=== PATIENT | female | born 1985 | race Caucasian/White ===

== ENCOUNTER 2025-04-11 05:59 | Outpatient (REF) | payer MEDICAID, SELFPAY ==
--- OUTSIDE RECORDS SUMMARY | 2025-04-08 14:00 | XMS_ITS | Encounter Summary ---
Author Organization [email or web address] [facility] Address [address] [place] [address] [address], [place] [address] Care Team Providers Care Clinical Trials Systems Administrator Name Role Phone Radha Licona MD Primary Care Provide r Reason for Referral * Consultation (Routine) - Closed Specialty Diagnoses / Procedures Referred By Kim t Referred To Contact Otolaryngology Diagnoses Chronic left ear pain Radha Licona MD [address] [place] [address] Phone: tel: fax: [facility] [address] Phone: tel: fax: Referral ID Status Reason Start Date Expiration Date V isits Requested Visits Authorized [id number] Closed Specialty Services Required 04/08/2025 04/08/2026 6 6 * Consultation (Routine) - Authorized Specialty Diagnoses / Procedures Referred By Contac t Referred To Contact Behavioral Health Diagnoses Anxiety Procedures Referral to Behavioral Health Radha Licona MD [address] [place] [address] Phone: tel: fax: Referral ID Status Reason Start Date Expiration Date Visits Requested Visits Authorized [id number] Authorized Specialty Services Required 04/08/2025 04/08/2026 1 1 * Consultation (Routine) - Closed Specialty Diagnoses / Procedures Referred By Contac t Referred To Contact Physical Therapy Diagnoses Chronic pain of right knee Right sciatic nerve pain Radha Licona MD [address] [place], [place] Phone: tel: fax: [facility] [address] [place], [place] Phone: tel: fax: Referral ID Status Reason Start Date Expiration Date V isits Requested Visits Authorized [id number] Closed Specialty Services Required 04/08/2025 04/08/2026 20 20 * Consultation (Routine) - Authorized Specialty Diagnoses / Procedures Referred By Kim t Referred To Contact Obstetrics and Gynecology Diagnoses Dysmenorrhea Radha Licona MD [address] [place], [place] Phone: tel: fax: [facility] [address] 5th Floor [address] (Main Hospital Entrance) [place], [place] Phone: tel: fax: Referral ID Status Reason Start Date Expiration Date Visits Requested Visits Authorized [id number] Authorized Specialty Services Required 04/08/2025 04/08/2026 9 9 * Imaging (Routine) - Authorized Specialty Diagnoses / Procedures Referred By Contac t Referred To Contact Radiology Diagnoses Dysmenorrhea Procedures US Pelvis Transvaginal Radha Licona MD [address] [place], [place] Phone: tel: fax: [facility] [address] [place] [address] Phone: tel: fax: Referral ID Status Reason Start Date Expiration Date V isits Requested Visits Authorized [id number] Authorized 04/08/2025 04/08/2026 1 1 * Imaging (Routine) - Authorized Specialty Diagnoses / Procedures Referred By Kim t Referred To Contact Radiology Diagnoses Dysmenorrhea Procedures Us Pelvis complete Radha Licona MD [address] [place] [address] Phone: tel: fax: [address] Phone: tel: fax: Referral ID Status Reason Start Date Expiration Date V isits Requested Visits Authorized [id number] Authorized 04/08/2025 04/08/2026 1 1 Encounter Details Date Type Department Care Team (Late st Contact Info) Description 04/08/2025 2:00 PM EST Office Visit [facility] [address] [place] [address] Radha Licona MD [address] [place], [place] [phone] Dysmenorrhea (Primary Dx); Chronic pain of right knee; Right sciatic nerve pain; Anxiety; Chronic left ear pain Social History Tobacco Use Types Packs/Day Years Used Date Smoking Tobacco: Never Passive Smoke Exposure: Never Smokeless Tobacco: Never Comments Unknown Sex and Gender Information Value Date Recorded Sex Assigned at Female 04/02/2022 5:40 PM EDT Legal Sex Female 5:40 PM EDT Gender Identity Female 04/02/2022 5:40 PM EDT Sexual Orientation Straight 04/02/2022 5: 40 PM EDT documented as of this encounter Last Filed Vital Signs Vital Sign Reading Time Taken Comments Blood Pressure 112/80 04/08/2025 2:06 PM EST Pulse 101 04/08/2025 2:06 PM EST Temperature 35.9 C (96.6 F) 04/08/2025 2:06 PM EST Respiratory Rate 17 04/08/2025 2:06 PM EST Oxygen Saturation 99% 04/08/2025 2:06 PM EST Inhaled Oxygen Concentration - - Weight 58.8 kg (129 lb 9.6 oz) 04/08/2025 2:06 P M EST Height 154.9 cm (5' 1 ) 04/08/2025 2:06 PM EST Body Mass Index 24.49 04/08/2025 2:06 PM EST documented in this encounter Progress Notes * Radha Pate MD - 04/08/2025 2:00 PM EST SUBJECTIVE: Sugar Mendez is a 39 y.o. year old female who presents for New patient . Occupation:works in a [employer] shop Lives with:with her 2 kids - EtOH occasionally 2 times per month tries not to drink too much does days - smoking cigarettes denies - recreational drug use denies Diet:regular Exercise:sedentary LMP: 04/07/2025 regular, dysmenorrhea Surgeries/Hospitalizations:tubal ligation, c-sections x3 PMHx:sciatic pain right side, right knee pain, anxiety, chronic left ear pain with dizziness FMHx:mother asthma, father prostatic cancer, cousin thyroid cancer and lung cancer Immunizations: Declines immunizations Sugar Mendez, 39 years Sciatic pain and right knee pain - Intermittent burning sensation starting in the lower back, radiating down the right leg to the big toe, sometimes affecting walking and sleep - Symptoms present since January 2025, occurring on some days and absent on others - Right knee pain, sometimes severe enough to prevent kneeling - History of accident 20 years ago, with current symptoms attributed to sequelae affecting back, sciatic nerve, and hands Menstrual pain - Menstrual cycles regular every 26-28 days, onset of last period April 07, 2025 - Menstruation described as very painful - Pain has worsened since tubal ligation performed 9 years ago - Uses ibuprofen and occasionally acetaminophen for pain, reports limited relief Left ear pain - Left ear pain for approximately 3 years, occurs only in cold weather or with air conditioning - Associated with dizziness Anxiety - Experiences fatigue during the day, attributed to anxiety - Denies depression - History of one year of therapy via telehealth at previous residence - Used melatonin for sleep, discontinued due to adverse effects - Uses teas for anxiety management Joint pain - Occasional severe joint pain, especially in the mornings, described as similar to symptoms of Zika and Chikungunya Social History Social History Narrative Not on file Problem List[1] Family History[2] Review of Systems Constitutional: Negative. HENT: Negative. Respiratory: Negative. Cardiovascular: Negative. Genitourinary: Positive for menstrual problem. Musculoskeletal: Positive for arthralgias and myalgias. Psychiatric/Behavioral: The patient is nervous/anxious. OBJECTIVE: Vitals: 04/08/25 1406 BP: 112/80 BP Location: Left arm Patient Position: Sitting BP Cuff Size: Adult Pulse: 101 Resp: 17 Temp: 96.6 ??F (35.9 ??C) TempSrc: Temporal SpO2: 99% Weight: 129 lb 9.6 oz (58.8 kg) Height: 5' 1 (1.549 m) Physical Exam Constitutional: Appearance: Normal appearance. Cardiovascular: Rate and Rhythm: Normal rate and regular rhythm. Pulmonary: Effort: Pulmonary effort is normal. Breath sounds: Normal breath sounds. Abdominal: General: Abdomen is flat. Palpations: Abdomen is soft. Musculoskeletal: Right lower leg: No edema. Left lower leg: No edema. Neurological: Mental Status: She is alert. Follow Up: Follow up for next available PAP smear . Medications Ordered Prior to Encounter[3] Problem List Items Addressed This Visit Dysmenorrhea - Primary Relevant Orders Us Pelvis complete US Pelvis Transvaginal Referral to Obstetrics / Gynecology Chronic pain of right knee Relevant Orders XR Knee 4+ Views Right Referral to Physical Therapy Right sciatic nerve pain Relevant Orders XR Lumbar Spine 2-3 Views Referral to Physical Therapy Anxiety Relevant Orders CBC auto differential Comprehensive Metabolic Panel Hemoglobin A1c HIV-1/2 Antigen and Antibodies, Fourth Generation, with Reflexes Hepatitis C Antibody with Reflex to HCV, RNA, Quantitative, Real-Time PCR Lipid Panel, Standard Vitamin D, 25-Hydroxy, Total, Immunoassay TSH with Reflex to Free T4 Referral to Behavioral Health Chronic left ear pain Relevant Orders Referral to ENT Dysmenorrhea: - Dysmenorrhea with increased severity since tubal ligation 9 years ago. - Ordered pelvic and transvaginal ultrasound. Ordered comprehensive blood work including thyroid panel. Referred to gynecology for further evaluation. Continue use of Motrin as needed for pain. Chronic pain of right knee: - Chronic right knee pain, worsened by movement. - Ordered right knee radiograph. Provided physical therapy referral. Right sciatic nerve pain: - Chronic right-sided sciatica, intermittent symptoms. - Ordered lumbar spine radiograph. Provided physical therapy referral. Anxiety: - Anxiety, currently not on medication or therapy. - Provided referral to therapist for evaluation and management. Chronic left ear pain: - Chronic left ear pain, exacerbated by cold exposure and air conditioning. This note was drafted using Ambient (AI) technology. The patient/patient's guardian has been informed and has consented to the use of this technology: Yes [1] Patient Active Problem List Diagnosis Periodontal disease Dental calculus Gingival bleeding Dysmenorrhea Chronic pain of right knee Right sciatic nerve pain Anxiety Chronic left ear pain [2] No family history on file. [3] Current Outpatient Medications on File Prior to Visit Medication Sig Dispense Refill chlorhexidine (Peridex) 0.12 % solution Use 15 ml mouthwash, swish and spit/ three times a day (Patient not taking: Reported on 08/26/2022) 473 mL 0 No current facility-administered medications on file prior to visit. documented in this encounter Plan of Treatment Upcoming Encounters Date Type Department Care Team (Late st Contact Info) Description 04/16/2025 2:45 PM EST Telemedicine [facility] [address] [place], [place] [phone] Radha Licona MD [address] [place] [address] Scheduled Orders Name Type Priority Associated Diagnoses Orde r Schedule CBC auto differential Lab Routine Anxiety Expected: 04/08/2025 (Approximate), Expires: 04/08/2026 Comprehensive Metabolic Panel Lab Routine Anxiety Expected: 04/08/2025 (Approximate), Expires: 04/08/2026 Hemoglobin A1c Lab Routine Anxiety Expected: 04/08/2025 (Approximate), Expires: 04/08/2026 HIV-1/2 Antigen and Antibodies, Fourth Generation, with Reflexes Lab Routine Anxiety Expected: 04/08/2025 (Approximate), Expires: 04/08/2026 Hepatitis C Antibody with Reflex to HCV, RNA, Quantitative, Real-Time PCR Lab Routine Anxiety Expected: 04/08/2025, Expires: 04/08/2026 Lipid Panel, Standard Lab Routine Anxiety Expected: 04/08/2025 (Approximate), Expires: 04/08/2026 Vitamin D, 25-Hydroxy, Total, Immunoassay Lab Routine Anxiety Expected: 04/08/2025 (Approximate), Expires: 04/08/2026 TSH with Reflex to Free T4 Lab Routine Anxiety Expected: 04/08/2025 (Approximate), Expires: 04/08/2026 Us Pelvis complete Imaging Routine Dysmenorrhea Expected: 04/08/2025, Expires: 04/08/2026 US Pelvis Transvaginal Imaging Routine Dysmenorrhea Expected: 04/08/2025, Expires: 04/08/2026 XR Lumbar Spine 2-3 Views Imaging Routine Right sciatic nerve pain Expected: 04/08/2025, Expires: 04/08/2026 XR Knee 4+ Views Right Imaging Routine Chronic pain of right knee Expected: 04/08/2025, Expires: 04/08/2026 Scheduled Referrals Name Type Priority Associated Diagnoses Order Schedule Referral to Obstetrics / Gynecology Outpatient Referral Routine Dysmenorrhea Expected: 04/08/2025 (Approximate), Expires: 04/08/2026 Referral to Physical Therapy Outpatient Referral Routine Chronic pain of right knee Right sciatic nerve pain Expected: 04/08/2025 (Approximate), Expires: 04/08/2026 Referral to ENT Outpatient Referral Routine Chronic left ear pain Expected: 04/08/2025 (Approximate), Expires: 04/08/2026 documented as of this encounter Visit Diagnoses Diagnosis Dysmenorrhea- Primary Chronic pain of right knee Right sciatic nerve pain Anxiety Anxiety state, unspecified Chronic left ear pain Unspecified otalgia documented in this encounter Care Teams Clinical Trials Systems Administrator Relationship Specialty Start Date End Date Radha Licona MD [address] [place] [id number] PCP - General Internal Medicine 04/08/25 documented as of this encounter
--- NOTE | ~2025-04-11 | XR_ITS ---
EXAMINATION: XR LUMBOSACRAL SPINE CLINICAL INFORMATION: pain COMPARISON: None available. TECHNIQUE: Three views of the lumbosacral spine. FINDINGS: Mild dextrocurvature of the lumbar spine. Mild depression of the super endplate of L5 has chronic appearance. Remainder of vertebral body heights are maintained. Disc spaces are preserved. Sacroiliac joints are intact. XR/XR lumbar spine 2-3V IMPRESSION: Chronic appearing mild depression of the super endplate of L5. No significant degenerative changes. Electronically signed by: Mylene Herman MD 04/11/2025 07:08 AM [facility]
--- NOTE | ~2025-04-11 | XR_ITS ---
EXAMINATION: XR KNEE, RIGHT CLINICAL INFORMATION: pain COMPARISON: None available. TECHNIQUE: Four views of the right knee. FINDINGS: Normal alignment. No acute fracture. Joint spaces are preserved. No suprapatellar joint effusion. XR/XR knee RT 4V IMPRESSION: Unremarkable examination. Electronically signed by: Mylene Herman MD 04/11/2025 07:06 AM [facility]
--- OUTSIDE RECORDS SUMMARY | 2025-04-11 06:05 | XMS_ITS | Encounter Summary ---
Author Organization [facility] Address [address] [facility] 7 [place] [address] Care Team Providers Care Animal Science Professor Name Role Phone Radha Licona MD Primary Care Provide r Encounter Details Date Type Department Care Team (Late Contact Info) Description 08/10/[address] [facility] [address] [place] [address] Antony Barbosa DDS [address] [place] [address] Social History Tobacco Use Types Packs/Day Years Used Date Smoking Tobacco: Never Passive Smoke Exposure: Never Smokeless Tobacco: Never Comments Unknown Sex and Gender Information Value Date Recorded Sex Assigned at Female 04/02/2022 5:40 PM EDT Legal Sex Female 5:40 PM EDT Gender Identity Female 04/02/2022 5:40 PM EDT Sexual Orientation Straight 04/02/2022 5: 40 PM EDT COVID-19 Exposure Response Date Recorded In the last 10 days, have yo u been in contact with someone who was confirmed or suspected to have Coronavirus/COVID-19? No / Unsure 07/26/2022 3:46 PM EST documented as of this encounter Plan of Treatment Upcoming Encounters Date Type Department Care Team (Late Contact Info) Description 04/16/2025 2:45 PM EST Telemedicine [facility] [address] [place] [address] Radha Licona MD [address] [place] [address] documented as of this encounter Visit Diagnoses Not on filedocumented in this encounter Care Teams Animal Science Professor Relationship Specialty Start Date End Date Radha Licona MD [address] [place] [address] PCP - General Internal Medicine 04/08/25 documented as of this encounter
--- OUTSIDE RECORDS SUMMARY | 2025-04-11 06:05 | XMS_ITS | Clinical Summary ---
Author Organization [employer] Address [address] [place] [address] [address] [place] [address] Care Team Providers Care Beef Grader Name Role Phone Radha Licona MD Primary Care Provide r Allergies No known active allergies Medications chlorhexidine (Peridex) 0.12 % solutionIndicati ons:Encounter for dental examination Use 15 ml mouthwash, swish and spit/ three times a day 473 mL Active Additional Information Patient not taking.Reported on 08/26/2022 Active Problems Problem Noted Date Diagnosed Date Dysmenorrhea 04/08/2025 Chronic pain of right knee 04/08/2025 Right sciatic nerve pain 04/08/2025 Anxiety 04/08/2025 Chronic left ear pain 04/08/2025 Periodontal disease 07/27/2022 Dental calculus 07/27/2022 Gingival bleeding 07/27/2022 Encounters Date Type Department Care Team Description 04/08/2025 2:00 PM EST Office Visit [facility] [address] [place] [phone] Radha Licona MD Dysmenorrhea (Primary Dx); Chronic pain of right knee; Right sciatic nerve pain; Anxiety; Chronic left ear pain 04/08/2025 Travel 04/05/2025 Travel 01/09/2025 Telephone [facility] [address] [place] [address] Jolanta Ceballos MD from Last 3 Months Social History Tobacco Use Types Packs/Day Years Used Date Smoking Tobacco: Never Passive Smoke Exposure: Never Smokeless Tobacco: Never Tobacco Cessation:Counseling Given: Not Answered Comments Unknown Sex and Gender Information Value Date Recorded Sex Assigned at Female 04/02/2022 5:40 PM EDT Legal Sex Female 5:40 PM EDT Gender Identity Female 04/02/2022 5:40 PM EDT Sexual Orientation Straight 04/02/2022 5: 40 PM EDT Last Filed Vital Signs Vital Sign Reading Time Taken Comments Blood Pressure 112/80 04/08/2025 2:06 PM EST Pulse 101 04/08/2025 2:06 PM EST Temperature 35.9 C (96.6 F) 04/08/2025 2:06 PM EST Respiratory Rate 17 04/08/2025 2:06 PM EST Oxygen Saturation 99% 04/08/2025 2:06 PM EST Inhaled Oxygen Concentration - - Weight 58.8 kg (129 lb 9.6 oz) 04/08/2025 2:06 PM EST Height 154.9 cm (5' 1 ) 04/08/2025 2:06 PM EST Body Mass Index 24.49 04/08/2025 2:06 PM EST Plan of Treatment Upcoming Encounters Date Type Department Care Team (Late st Contact Info) Description 04/16/2025 2:45 PM EST Telemedicine [facility] [address] [place] [address] Radha Licona MD [address] [place] [address] Health Maintenance Due Date Last Done Comments Depression Screening 1987 SDOH Screening 1987 Alcohol/Substance Use Screening 1999 Family Planning (PISQ) 08/15/2002 HPV Vaccines (1 - 3-dose series) 08/15/2002 Hepatitis C Screening 08/15/2005 DTaP/Tdap/Td Vaccines (1 - Tdap) 08/15/2006 Hepatitis B Vaccines (1 of 3 - 19+ 3-dose series) 08/15/2006 Pap Smear 08/15/2008 Cervical Cancer Screening 08/15/2017 HPV/Cotest 08/15/2017 Dental Oral Exam 01/21/2023 07/23/2022 Dental Prophylaxis 01/25/2023 07/27/2022 Dental X-Ray: Bitewings 07/24/2023 07/23/2022 COVID-19 Vaccine (2 - 2024-2 6 season) 2025 10/16/2020 Influenza Vaccine (#1) 2025 07/16/2019 Dental X-Ray: Full Mouth 07/24/2025 07/23/2022 Disability Screening 04/05/2026 04/05/2025 Tobacco Screening 04/08/2026 04/08/2025 Zoster Vaccines (1 of 2) 08/15/2037 RSV Patients and Pa tients Aged 60 years or older (1 - 1-dose 75+ series) 08/15/2062 HIV Screening Completed 07/16/2019 HIB Vaccines Aged Out No longer eligi ble based on patient's age to complete this topic Hepatitis A Vaccines Aged Out No long er eligible based on patient's age to complete this topic IPV Vaccines Aged Out No longer eligi ble based on patient's age to complete this topic Meningococcal B Vaccine Aged Out No l onger eligible based on patient's age to complete this topic Meningococcal Vaccine Aged Out No taj lisa eligible based on patient's age to complete this topic Pneumococcal Vaccine: Pediat rics (0 to 5 Years) and At-Risk Patients (6 to 49) Years Aged Out No longer eligi ble based on patient's age to complete this topic RSV under 20 months Aged Out No longe r eligible based on patient's age to complete this topic Rotavirus Vaccines Aged Out No longer eligible based on patient's age to complete this topic Procedures Procedure Name Priority Date/Time Associated Diagnosis Comments PROPHYLAXIS - ADULT Routine 07/27/2022 3 :00 PM EST INTRAORAL - COMPLETE SERIES OF RADIOGRAPHIC IMAGES Routine 07/23/2022 3:00 PM EST COMPREHENSIVE ORAL EVALUATION - NEW OR ESTABLISHED PATIENT Routine 07/23/2022 3:00 PM EST ZZZ HISTORICAL HIV 1/2 AG/AB COMBO (PREFERRED) Routine 07/16/2019 10:28 AM EST from Last 3 Months or Most Recently Relevant to Health Maintenance Results * HIV 1/2 Ag/Ab Combo (Preferred) (07/16/2019 10:28 AM EST) HIV-1/HIV-2 Ag/Ab Combo Screen Non Reactive Non Reactive [facility] 07/16/2019 10:2 8 AM EST us Historical Provider HISTORICAL/NON ORDERABLE LABS Final Result [facility] [address] from Last 3 Months or Most Recently Relevant to Health Maintenance Insurance [facility] C3 DENTAL-[facility] MEDICAID STAND AD[place] [id number] Care Teams Beef Grader Relationship Specialty Start Date End Date Radha Licona MD [address] [place] [address] [place] [address] PCP - General Internal Medicine 04/08/25
--- OUTSIDE RECORDS SUMMARY | 2025-04-11 06:05 | XMS_ITS | Encounter Summary ---
Author Organization [facility] Address [address] [facility] 7 [place] [address] Care Team Providers Care Java Software Developer Name Role Phone Radha Licona MD Primary Care Provide r Encounter Details Date Type Department Care Team (Late Contact Info) Description 08/18/2022 Abstract [facility] ADULT DENTAL [address] [place] [address] Antony Barbosa DDS [address] [place] [address] Social History Tobacco Use Types Packs/Day Years [...] Info) Description 04/16/2025 2:45 PM EST Telemedicine [facility] [address] [place] [address] Radha Licona MD [address] [place] [address] documented as of this encounter Visit Diagnoses Not on filedocumented in this encounter Care Teams Java Software Developer Relationship Specialty Start Date End Date Radha Licona MD [address] [place] [address] PCP - General Internal Medicine 04/08/25 documented as of this encounter
--- OUTSIDE RECORDS SUMMARY | 2025-04-11 06:05 | XMS_ITS | Encounter Summary ---
Author Organization [facility] [facility] Address [address] [facility] [place], [place] [address] Care Team Providers Care Offset Platemaker Name Role Phone Radha Licona MD Primary Care Provide r Encounter Details Date Type Department Care Team (Latest Contact Info) Description 04/08/2025 Travel Social History Tobacco Use Types Packs/Day Years Used Date Smoking Tobacco: Never Passive Smoke Exposure: Never Smokeless Tobacco: Never Comments Unknown Sex and Gender Information Value Date Recorded Sex Assigned at Female 04/02/2022 5:40 PM EDT Legal Sex Female 5:40 PM EDT Gender Identity Female 04/02/2022 5:40 PM EDT Sexual Orientation Straight 04/02/2022 5: 40 PM EDT documented as of this encounter Plan of Treatment Upcoming Encounters Date Type Department Care Team (Late st Contact Info) Description 04/16/2025 2:45 PM EST Telemedicine [facility] [address] [place] [address] Radha Licona MD [address] [place] [address] documented as of this encounter Visit Diagnoses Not on filedocumented in this encounter Care Teams Offset Platemaker Relationship Specialty Start Date End Date Radha Licona MD [address] [place] [id number] PCP - General Internal Medicine 04/08/25 documented as of this encounter
[2025-04-11 06:27] LABS: MANUAL DIFF FLAG NO
[2025-04-11 07:20] LABS: Hematocrit 36.9 % (37.0-47.0); Hemoglobin 12.3 g/dl (12.0-16.0); Imm Gran Abs Auto 0.06 X10*3/uL (0.00-0.03); Imm Gran Pct Auto 1.2 % (0.0-0.4); Lymphocytes Absolute Auto 1.7 X10*3/uL (1.2-4.9); Mean Corpuscular HGB Conc 33.3 g/dl (31.0-35.0); Mean Corpuscular Hemoglobin 31.3 pg (27.0-33.0); Mean Corpuscular Volume 93.9 fL (80.0-98.0); NRBC Abs Auto 0.000 X10*3/uL (0.0-0.012); NRBC Pct Auto 0.0 /100WBC (0.0-0.2); Platelet Count 340 X10*3/uL (160-400); Red Blood Count 3.93 X10*6/uL (4.20-5.50); White Blood Count 5.2 X10*3/uL (4.8-10.8)
[2025-04-11 08:04] LABS: Alanine Aminotransferase 13 U/L (0-31); Albumin Level 4.6 g/dL (3.5-5.0); Alkaline Phosphatase 44 U/L (39-117); Anion Gap 11 (12-20); Aspartate Amino Transferase 18 U/L (5-31); Blood Urea Nitrogen 9 mg/dL (9-16); Calcium 8.9 mg/dL (8.4-10.2); Carbon Dioxide 26 mmol/L (22-29); Chloride 106 mmol/L (96-108); Cholesterol 188 mg/dL (<200); Estimated Glomerular Filt Rate > 60; HDL Cholesterol 62 mg/dL (>40); Potassium 4.1 mmol/L (3.3-5.1); Sodium 139 mmol/L (135-145); Total Protein 7.3 g/dL (6.5-8.0); Triglycerides 61 mg/dL (<150)
[2025-04-11 08:50] LABS: HIV Num 1 0.06 S/CO (0.00-0.99); ~HepC Num1 0.08 S/CO (0.00-0.79); ~Hepatitis C Antibody Nonreactive (Nonreactive)
== END 2025-04-11 06:00 | disposition home or self-care (01) ==
LOC: HO.XRAY 05:59
PROVIDERS: PCP Internal Medicine; Visit Provider Internal Medicine
DX: Z11.4 Encounter for screening for human immunodeficiency virus [HIV] (principal); Z11.59 Encounter for screening for other viral diseases; G89.29 Other chronic pain; M54.31 Sciatica, right side; M25.561 Pain in right knee; F41.9 Anxiety disorder, unspecified
CPT/HCPCS: 36415; 72100; 73564; 80053; 80061; 82306; 83036; 84443; 85025; 86803; 87389

== ENCOUNTER → 2025-04-11 06:28 | Outpatient (BNV) | payer MEDICAID, SELFPAY | PROVIDERS: PCP Internal Medicine; Visit Provider Radiology Body Imaging | DX: M25.561 Pain in right knee (principal); M54.50 Low back pain, unspecified | CPT/HCPCS: 72100; 73564 ==

== ENCOUNTER 2025-05-21 15:38 | Outpatient (REF) | payer MEDICAID, SELFPAY ==
--- NOTE | ~2025-05-21 | US_ITS ---
EXAMINATION: US PELVIS TRANSABDOMINAL AND TRANSVAGINAL HISTORY: dysmenorrhea COMPARISON: There are no prior studies available for comparison. TECHNIQUE: Transabdominal and endovaginal real-time 2D grajeda-scale ultrasound was performed. FINDINGS: LMP:2 weeks ago Uterus: The uterus is normal in size, measuring 9.7 x 3.3 x 5 cm. Uterus is anteverted and retroflexed Myometrium has a normal echotexture. No focal uterine abnormality identified. Endometrium: The endometrial stripe measures 12 mm in thickness. Right ovary: The right ovary measures 2.8 x 1.3 x 2.1 cm.. Volume 4.4 mL. The right ovary is normal in size and echotexture. Left ovary: The left ovary measures 4 x 2 x 2.9 cm. Volume 12.1 mL The left ovary is normal in size and echotexture. Pelvic fluid: none. US/US pelvic and transvaginal IMPRESSION: No significant abnormality demonstrated by ultrasound Electronically signed by: Reji House MD 05/22/2025 11:07 AM [facility]
== END 2025-05-21 15:39 | disposition home or self-care (01) ==
LOC: HO.US 15:38
PROVIDERS: PCP Internal Medicine; Visit Provider Internal Medicine
DX: N94.6 Dysmenorrhea, unspecified (principal)
CPT/HCPCS: 76830; 76856

== ENCOUNTER → 2025-05-21 15:40 | Outpatient (BNV) | payer MEDICAID, SELFPAY | PROVIDERS: PCP Internal Medicine; Visit Provider Radiology Diagnostic Ultrasound | DX: N94.6 Dysmenorrhea, unspecified (principal) | CPT/HCPCS: 76830; 76856 ==